=== PATIENT | male | born 1985 | race Hispanic/Latino ===

== ENCOUNTER 2019-01-26 15:25 | Emergency (ER) | payer OTHER | END 2019-01-26 16:24 | disposition home or self-care (01) | LOC: EDH 15:25 | DX: S00.83XA Contusion of other part of head, initial encounter (principal); S80.211A Abrasion, right knee, initial encounter; M79.18 Myalgia, other site; W18.39XA Other fall on same level, initial encounter; Y93.89 Activity, other specified; Y92.89 Other specified places as the place of occurrence of the external cause; Y99.8 Other external cause status ==